=== PATIENT | male | born 1970 | race Caucasian/White ===

== ENCOUNTER 2016-12-17 12:01 | Emergency (ER) | payer OTHER ==
[2016-12-17 10:19] LABS: BASOPHILS 0.3 %; BASOPHILS ABSOLUTE 0.02 10/3/uL (0.0-0.16); EOSINOPHILS 2.9 %; EOSINOPHILS ABSOLUTE 0.19 10/3/uL (0.0-0.53); ER CBC TAT 0 Hrs 12 Mins; HEMATOCRIT 38.8 % (40.0-51.0); HEMOGLOBIN 13.5 g/dL (13.6-17.8); IMMATURE GRANULOCYTES 0.3 %; IMMATURE GRANULOCYTES ABSOLUTE 0.02 10/3/uL (0.0-0.11); LYMPHOCYTES 37.7 %; LYMPHOCYTES ABSOLUTE 2.48 10/3/uL (0.67-4.30); MEAN CORPUS HGB CONC 34.8 g/dL (32.0-36.0); MEAN CORPUSCULAR HEMOGLOB 29.9 pg (26.0-34.0); MEAN CORPUSCULAR VOLUME 85.8 fL (80-100); MEAN PLATELET VOLUME 9.4 fL (9.2-13.0); MONOCYTES 8.8 %; MONOCYTES ABSOLUTE 0.58 10/3/uL (0.21-1.20); NEUTROPHILS ABSOLUTE 3.29 10/3/uL (2.02-8.40); PLATELET COUNT 246 10/3/uL (150-400); RED CELL COUNT 4.52 10/6/uL (4.7-6.1); WHITE BLOOD CELLS 6.6 10/3/uL (4.5-10.5)
[2016-12-17 10:22] LABS: MANUAL DIFF NO %
[2016-12-17 10:28] LABS: A/G RATIO 1.2 (0.7-1.9); ALBUMIN 3.9 G/DL (3.5-5.0); CALCIUM, SERUM 8.8 MG/DL (8.5-10.4); CHLORIDE, SERUM 106 MMOL/L (96-112); CO2 (CARBON DIOXIDE) 25 MMOL/L (24-34); GFR AFRICAN AMERICAN 117 ML/MIN (>=60); GFR NON AFRICAN AMERICAN 101 ML/MIN (>=60); GLOBULIN 3.2 G/DL (2.5-4.1); GLUCOSE, SERUM 95 MG/DL (60-99); POTASSIUM, SERUM 4.1 MMOL/L (3.5-5.3); SGOT(AST) 13 U/L (5-40); SGPT(ALT) 22 U/L (5-65); SODIUM, SERUM 140 MMOL/L (135-148); TOTAL BILIRUBIN 0.6 MG/DL (0-1.2); TOTAL PROTEIN 7.1 G/DL (6.0-8.5)
[2016-12-17 10:29] LABS: ALKALINE PHOSPHATASE 67 U/L (45-117); BUN (BLOOD UREA NITROGEN) 16 MG/DL (6-23)
[2016-12-17 10:35] LABS: ASCORBIC ACID (UR NOT ORDER) NEG (NEG); BILIRUBIN, URINE NEGATIVE (NEG); ER URINALYSIS TAT 0 Hrs 08 Mins; KETONE, URINE NEGATIVE (NEG); LEUKOCYTE ESTERASE(NOT OR NEG (NEG); NITRITE (URINE) NEG (NEG); WBC (NOT ORDERED) (RFLEX) 1 (0-5)
[2016-12-18] MEDS ORDERED: ZYRTEC ALLGY10 MG PO (15:28)
[2016-12-18] MEDS ORDERED: NORCO1 TA2 PO (15:29)
[2016-12-18] MEDS ORDERED: DIL2TAB PO (15:30)
[2016-12-18] MEDS ORDERED: FLOMAX4 PO (15:31)
[2016-12-27] MEDS ORDERED: PYR200 PO (17:13)
== END 2016-12-17 12:39 | disposition home or self-care (01) ==
LOC: ER 12:01
PROVIDERS: Emergency Medicine
DX: N20.1 Calculus of ureter (principal); Z87.442 Personal history of urinary calculi; Z88.1 Allergy status to other antibiotic agents; Z91.030 Bee allergy status
CPT/HCPCS: 74176; 80053; 81001; 83690; 85025; 99284

== ENCOUNTER 2016-12-21 08:48 | Day surgery (SDC) | payer OTHER ==
--- NOTE | ~2016-12-21 | OP ---
Record Of Operation [facility] [address] [place]. [address] NAME: OMAR HELLER : 66 STATUS : [facility] [place] PAT#: [id number] AGE: 46 ADM/REG DATE : 12/21/16 MR#: [id number] REPORT SERV DATE: 12/21/16 DICTATED BY: RAO TEE DATE: 12/21/16 REPORT STATUS : Draft TRANSCRIBED BY: MODL DATE: 12/21/16 DATE OF PROCEDURE: 12/21/2016 PREOPERATIVE DIAGNOSIS: Right midureteral calculus. POSTOPERATIVE DIAGNOSIS: Right midureteral calculus. PROCEDURE: Cystoscopy, right retrograde pyelogram, right ureteroscopy, and right double-J stent placement. ANESTHESIA: General. BLOOD LOSS: None. DRAINS: 7-Gabonese 26 cm double-J right ureteral stent with strings removed. INDICATION: A 46-year-old male with symptomatic right midureteral calculus. FINDINGS: Edematous ureter that I could not dilate enough to get a ureteroscope up to the stone. I stented the patient instead. TECHNIQUE: The patient was identified, brought to the operating room, administered general anesthetic agent by the anesthesia service, and intubated. He was positioned in dorsal lithotomy position. Penis, groin, scrotum, and perineum were prepped and draped in usual sterile fashion. The 22-Gabonese cystoscopic sheath with 30-degree lens was used for cystourethroscopy. The anterior and bulbous urethra normal. Prostatic urethra was moderately enlarged. The bladder was entered and drained of urine. It was surveyed both with 30 and 70-degree lens. No urothelial lesions were noted. The right ureteral orifice identified and was cannulated with a 5-Gabonese open-ended catheter. Right retrograde pyelogram was obtained. It showed some narrowing at the level of the iliac vessels and just proximal to that medial deviation of the ureter was mild hydroureteronephrosis. I passed a 0.35 wire up the right ureter and removed the cystoscope. I then placed a small semi-rigid ureteroscope through the bladder and up the right ureter. I was able to get up to the level of the iliac vessels, but I could not get beyond that. I placed a 2nd wire through the ureteroscope and advanced it up into the renal pelvis. I removed the ureteroscope. Over the 2nd wire, I dilated the ureter with axial dilators. I was unable to get any of the dilators to go up above the level of the iliac vessels. I then removed the axial dilators and placed a 14-Gabonese ureteral access sheath. I removed the inner core and advanced the flexible cystoscope through this. I was able to get the flexible cystoscope to the same narrow location in the iliac vessels. I could not get up above that. I could not get to the stone. At this point, I removed the ureteroscope. I back loaded the cystoscope onto the wire, positioned a 7-Gabonese 26 cm double-J right ureteral stent. The proximal end was coiled in the renal pelvis under fluoroscopy. The distal end in the bladder. The strings and the wire were removed. The bladder was drained and the procedure was terminated. Patient was awakened and taken to the recovery unit in stable and satisfactory condition. Record Of Operation [place] [id number] [facility] [place]. [address] NAME: OMAR HELLER : 66 STATUS : [facility] [place] PAT#: [id number] AGE: 46 ADM/REG DATE : 12/21/16 MR#: [id number] REPORT SERV DATE: 12/21/16 DICTATED BY: RAO TEE DATE: 12/21/16 REPORT STATUS : Draft TRANSCRIBED BY: ALEXUS DATE: 12/21/16 PF/ALEXUS Rao Tee M.D. / [id number] CC: Rao Tee M.D.
[~2016-12-21 08:48] MED LIST: DIL2TAB PO; FLOMAX4 PO; NORCO1 TA2 PO; ZYRTEC ALLGY10 MG PO
[2016-12-27] MEDS ORDERED: PYR200 PO (17:13)
== END 2016-12-21 17:49 | disposition home or self-care (01) ==
LOC: SDC 08:48
PROVIDERS: Urology
PROC: BT1DYZZ Fluoroscopy of Right Kidney, Ureter and Bladder using Other Contrast (ICD-10-PCS; 2016-12-21)
PROC: 0T768DZ Dilation of Right Ureter with Intraluminal Device, Via Natural or Artificial Opening Endoscopic (ICD-10-PCS; principal; 2016-12-21 09:45)
DX: N13.2 Hydronephrosis with renal and ureteral calculous obstruction (principal); I10 Essential (primary) hypertension; Z79.891 Long term (current) use of opiate analgesic; Z79.899 Other long term (current) drug therapy; Z98.890 Other specified postprocedural states; Z87.442 Personal history of urinary calculi
CPT/HCPCS: 74420; 93005; A9270-GY; C1758; C1894; C2617; J1885; J2250; J2270; J2405; J2710; J3010; Q9967

== ENCOUNTER 2017-01-03 11:15 | Day surgery (SDC) | payer OTHER ==
[2016-12-31 13:42] LABS: BASOPHILS 0.4 %; BASOPHILS ABSOLUTE 0.03 10/3/uL (0.0-0.16); EOSINOPHILS 3.5 %; EOSINOPHILS ABSOLUTE 0.24 10/3/uL (0.0-0.53); HEMATOCRIT 40.5 % (40.0-51.0); HEMOGLOBIN 13.9 g/dL (13.6-17.8); IMMATURE GRANULOCYTES 0.4 %; IMMATURE GRANULOCYTES ABSOLUTE 0.03 10/3/uL (0.0-0.11); LYMPHOCYTES 34.3 %; LYMPHOCYTES ABSOLUTE 2.33 10/3/uL (0.67-4.30); MANUAL DIFF NO %; MEAN CORPUS HGB CONC 34.3 g/dL (32.0-36.0); MEAN CORPUSCULAR HEMOGLOB 30.1 pg (26.0-34.0); MEAN CORPUSCULAR VOLUME 87.7 fL (80-100); MEAN PLATELET VOLUME 10.2 fL (9.2-13.0); MONOCYTES 9.9 %; MONOCYTES ABSOLUTE 0.67 10/3/uL (0.21-1.20); NEUTROPHILS 51.5 %; NEUTROPHILS ABSOLUTE 3.49 10/3/uL (2.02-8.40); PLATELET COUNT 252 10/3/uL (150-400); RBC DISTRIBUTION WIDTH 12.6 % (12.0-16.0); RED CELL COUNT 4.62 10/6/uL (4.7-6.1); WHITE BLOOD CELLS 6.8 10/3/uL (4.5-10.5)
[2016-12-31 13:57] LABS: BUN (BLOOD UREA NITROGEN) 17 MG/DL (6-23); CALCIUM, SERUM 9.4 MG/DL (8.5-10.4); CHLORIDE, SERUM 105 MMOL/L (96-112); CO2 (CARBON DIOXIDE) 27 MMOL/L (24-34); CREATININE 0.98 MG/DL (0.70-1.30); GFR AFRICAN AMERICAN 105 ML/MIN (>=60); GFR NON AFRICAN AMERICAN 91 ML/MIN (>=60); GLUCOSE, SERUM 84 MG/DL (60-99); POTASSIUM, SERUM 4.3 MMOL/L (3.5-5.3); SODIUM, SERUM 142 MMOL/L (135-148)
--- NOTE | ~2017-01-03 | OP ---
Record Of Operation [facility] [address] [place]. [address] NAME: OMAR MENEZES : 66 STATUS : [facility]#: [id number] AGE: 46 ADM/REG DATE : 01/03/17 MR#: [id number] REPORT SERV DATE: 01/03/17 DICTATED BY: RAO TEE DATE: 01/03/17 REPORT STATUS : Draft TRANSCRIBED BY: MODL DATE: 01/03/17 DATE OF PROCEDURE: 01/03/2017 PREOPERATIVE DIAGNOSIS: Right mid ureteral calculus. POSTOPERATIVE DIAGNOSIS: Right mid ureteral calculus. PROCEDURE: 1. Cystoscopy. 2. Right retrograde pyelogram. 3. Right ureteroscopy. 4. Right ureteroscopic stone extraction with in situ laser lithotripsy. 5. Right double-J stent exchange. SURGEON: Rao Tee M.D. ANESTHESIA: General. ESTIMATED BLOOD LOSS: Less than 5 mL. FLUID REPLACEMENT: 600 mL of crystalloid. DRAINS: A 6-Zambian, 26 cm double-J right ureteral stent with the strings removed. INDICATION: Mr. Menezes is a 46-year-old male, who presented with an obstructing stone several weeks ago. He underwent cysto retrograde and attempted ureteroscopy two weeks ago. The ureter was too edematous and swollen for me to get up above the iliac vessels, which is right where the stone was located. I stented them at that time, returned now for stone extraction. TECHNIQUE: The patient was identified, brought to the operating room, administered general anesthetic agent by the anesthesia service and intubated. He was positioned in dorsal lithotomy position. Penis, groin, scrotum, and perineum were prepped and draped in the usual sterile fashion. The 22-Zambian cystoscopic sheath with 30-degree lens was used for cystourethroscopy. The anterior and bulbous urethra were normal. The prostatic urethra was hypertrophied. The bladder was entered and surveyed. The tip of the right ureteral stent was identified, grasped, and removed out through the urethral meatus. I then advanced a 0.35 wire through the stent and up into the right kidney under fluoroscopy. The stent was removed leaving the wire behind. I advanced a semi-rigid ureteroscope along next to the wire and through the urethra, the bladder, and the distal ureter. Again, I could not get up to the level of the iliac vessels, but connected above the iliac vessels with the wire, with the rigid scope. I removed the rigid scope and back-loaded a Mariano exchange catheter over the wire. I removed the core, placed a second wire up the right ureter under fluoroscopy. I removed the Mariano and over the larger stiffer wire, I advanced a 14-Zambian ureteral access sheath. Record Of Operation [place] [address] [place]. [address] NAME: OMAR MENEZES : 66 STATUS : [facility] PAT#: [id number] AGE: 46 ADM/REG DATE : 01/03/17 MR#: [id number] REPORT SERV DATE: 01/03/17 DICTATED BY: RAO TEE DATE: 01/03/17 REPORT STATUS : Draft TRANSCRIBED BY: ALEXUS DATE: 01/03/17 I am able to get this just up above the level of the iliac vessels. I removed the inner core and the wire, leaving the safety wire and the dilator sheath. I inserted a flexible ureteroscope through the access sheath. I am just above the level of the iliac vessels. I immediately encounter the stone. The stone was too large to come out in one piece. I used a holmium laser fiber and fragmented the stone on the dusting mode into several fragments. I then collected two of the large fragments and extract them. I advanced the flexible scope all the way up to the kidney. I surveyed each calyx. I do a little dusting on a small stone in one of the [id number] pole calices. I back filled the renal pelvis with dilute contrast material and removed the ureteroscope. I back-loaded the cystoscope onto the wire. I positioned a 6-Zambian, 26 cm double-J right ureteral stent with the proximal end coiled in the pelvis and distal end in the bladder. The strings and wire were removed. The bladder was drained. The procedure was terminated. The patient awakened and taken to the recovery unit in stable and satisfactory condition. RENETTA/ALEXUS Rao Tee M.D. / [id number] CC: Rao Tee M.D.
[~2017-01-03 11:15] MED LIST changes: +PYR200 PO
[2017-01-08 23:37] LABS: STONE COMPOSITION TWO DNR (())
== END 2017-01-03 19:08 | disposition home or self-care (01) ==
LOC: SDC 11:15
PROVIDERS: Urology
PROC: 0T768DZ Dilation of Right Ureter with Intraluminal Device, Via Natural or Artificial Opening Endoscopic (ICD-10-PCS; 2017-01-03)
PROC: BT1DZZZ Fluoroscopy of Right Kidney, Ureter and Bladder (ICD-10-PCS; 2017-01-03)
PROC: 0TF68ZZ Fragmentation in Right Ureter, Via Natural or Artificial Opening Endoscopic (ICD-10-PCS; principal; 2017-01-03 14:15)
DX: N20.1 Calculus of ureter (principal); Z91.030 Bee allergy status
CPT/HCPCS: 36415; 74420; 80048; 82365; 85025; A9270-GY; C1758; C1769; C1892; C1894; C2617; J2250; J2405; J3010; Q9967